=== PATIENT | male | born 1945 | race Two or more races ===

== ENCOUNTER → 2017-06-11 | Outpatient (CLI) | payer MEDICARE ==
--- NOTE | 2017-06-11 15:37 | REP ---
Chest x-ray: Two views. History: Abnormal breath sounds. Evaluate for pneumonia. Findings: The lungs are symmetrically aerated and free of infiltrate. Pleural angles are sharp. Heart is not enlarged. Pulmonary vasculature is not increased. No significant bony abnormality is seen. Pulmonary vasculature is not increased. Impression: No acute disease. Signed by Armand Solis MD 06/11/2017 05:07 P
== END ==
LOC: M LRY 14:20
PROVIDERS: ATTEND Nurse Practitioner Family
DX: R09.89 Other specified symptoms and signs involving the circulatory and respiratory systems (principal)

== ENCOUNTER → 2017-08-27 | Outpatient (CLI) | payer MEDICARE | LOC: M LRY 12:06 | DX: M77.32 Calcaneal spur, left foot (principal) | CPT/HCPCS: 73650; G0463 ==

== ENCOUNTER 2018-03-09 00:40 | Emergency (ER) | payer MEDICARE ==
[2018-03-09] MEDS: CYCLOBENZAPRINE 10 MG TAB PO (02:35)
[2018-03-09] MEDS: OXYCODONE/APAP 5MG/325MG(BULK FOR ED) 1 TABLET PO (02:35)
[2018-03-09] MEDS: predniSONE 20 MG TAB PO (02:35)
== END 2018-03-09 02:47 | disposition home or self-care (01) ==
LOC: M ED 00:40
DX: M54.41 Lumbago with sciatica, right side (principal); Z98.1 Arthrodesis status; Z79.899 Other long term (current) drug therapy; Z79.01 Long term (current) use of anticoagulants; Z88.8 Allergy status to other drugs, medicaments and biological substances
CPT/HCPCS: 99283